=== PATIENT | female | born 1980 | race Caucasian/White ===

== ENCOUNTER 2017-03-04 13:44 | Emergency (ER) | payer MEDICAID ==
--- NOTE | 2017-03-04 15:36 | EDPHY ---
H & P Smoking Status: Never smoked Time Seen by Provider: 03/04/17 13:56 HPI/ROS: CHIEF COMPLAINT: right anterior cruz pain HISTORY OF PRESENT ILLNESS: 36-year-old female presents emergency department complaining of a 1 month history of right anterior cruz pain. Patient states she started running 1 month ago training for a 5K when her pain began. She has stopped running symptoms due to the pain. 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 Patient reports pain is worse plantar flexing and going up stairs. She denies trauma, no calf pain, no swelling. Pain is better with rest. Patient denies other complaints. No numbness or tingling in her leg, no shortness of breath or chest pain, no history of blood clots, symptoms of a blood clot. REVIEW OF SYSTEMS: A comprehensive 10 point review of systems is otherwise negative aside from elements mentioned in the history of present illness. (Funmilayo Shah) Physical Exam: GEN: Awake, alert, oriented, no acute distress RESP: nl resp effort MSK: Normal appearing, full active range of motion to right ankle and knee, no swelling, 2+ pedal pulses, sensation intact to light touch, tenderness to palpation to distal medial tibia SKIN: No break in skin (Funmilayo Shah) Constitutional: Initial Vital Signs Temperature (C) 36.4 C 03/04/17 13:47 Heart Rate 74 03/04/17 13:47 Respiratory Rate 16 03/04/17 13:47 Blood Pressure 142/80 H 03/04/17 13:47 O2 Sat (%) 99 03/04/17 13:47 O2 Delivery Mode Room Air Allergies/Adverse Reactions: No Known Allergies Allergy (Unverified 05/08/16 10:36) Home Medications: Medication Instructions Recorded Nitrofurantoin Macrobid [Macrobid] 100 mg PO BID #10 cap 05/08/16 Obcp 05/08/16 Phenazopyridine HCl [Pyridium] 100 mg PO QID #12 tab 05/08/16 MDM/Departure - [facility] Imaging: I viewed and interpreted images myself - [facility] Imaging Results: Imaging Impressions Tibia/Fibula X-Ray 03/04/17 14:26 Impression: Left tibia/fibula negative for fracture. ED Course/Re-evaluation: I did not see this patient while she was in the emergency department. However her care was discussed with the nurse practitioner while the patient was in the department. I agree with treatment plan and management (Norris Woodward) - Depart Disposition: Home, Routine, Self-Care Clinical Impression: Cruz splints Qualifiers: Encounter type: initial encounter Laterality: left Qualified Code(s): S86.892A - Other injury of other muscle(s) and tendon(s) at lower leg level, left leg, initial encounter Condition: Good Instructions: Cruz Splints (ED) Additional Instructions: Rest, ice, elevate, take 600 mg of ibuprofen every 8 hours with food for 3-5 days. Wear Abelino boot while working, use crutches and keep weight off your foot while not working. Follow up with [facility] for symptoms that are not improving in the next 2-3 weeks. Referrals: [facility] [Outside] - As per Instructions
[2017-03-04 15:57] VITALS: BP 120/73; PULSE 70; RESP 15; TEMP 98.8; O2SAT 95
== END 2017-03-04 15:57 | disposition home or self-care (01) ==
DX: S86.892A Other injury of other muscle(s) and tendon(s) at lower leg level, left leg, initial encounter (principal); X58.XXXA Exposure to other specified factors, initial encounter; Y99.8 Other external cause status; Y93.02 Activity, running
CPT/HCPCS: L4386